=== PATIENT | male | born 1935 | race Caucasian/White ===

== ENCOUNTER 2016-06-22 16:05 | Outpatient (CLI) | payer MEDICARE ==
[2016-06-22 16:56] LABS: %FREE PSA 11.3 % (0-10); FREE PSA 0.65 ng/mL (0.00-45)
== END 2016-06-22 23:59 | disposition home or self-care (01) ==
LOC: LAB 16:05
DX: N40.0 Benign prostatic hyperplasia without lower urinary tract symptoms (principal)
CPT/HCPCS: 36415; 84153-TC; 84154-TC

== ENCOUNTER 2016-08-07 12:21 | Outpatient (CLI) | payer MEDICARE ==
[2016-08-07 13:35] LABS: ALBUMIN 3.3 g/dL (3.4-5.0); BILIRUBIN,TOTAL 0.3 mg/dL (0.2-1.0); CALCIUM, SERUM 8.8 mg/dL (8.5-10.1); CREATININE 1.1 mg/dL (0.6-1.3); POTASSIUM 4.4 mmol/L (3.5-5.1)
[2016-08-07 13:48] LABS: %FREE PSA 13.7 % (0-10); FREE PSA 1.01 ng/mL (0.00-45)
== END 2016-08-07 23:59 | disposition home or self-care (01) ==
LOC: LAB 12:21
DX: E29.1 Testicular hypofunction (principal); N40.0 Benign prostatic hyperplasia without lower urinary tract symptoms
CPT/HCPCS: 36415; 80053-TC; 84153-TC; 84154-TC

== ENCOUNTER → 2016-08-28 | Outpatient (CLI) | payer MEDICARE ==
[2016-08-28 12:41] LABS: FREE PSA 0.6 ng/mL (0.00-45); PROSTATE SPECIFIC ANTIGEN SCR 4.23 ng/mL (0.00-4.00)
== END ==
LOC: LAB 11:45
DX: R97.20 Elevated prostate specific antigen [PSA] (principal)
CPT/HCPCS: 36415; 84153-TC; 84154-TC

== ENCOUNTER 2016-12-02 12:20 | Outpatient (CLI) | payer MEDICARE ==
[2016-12-02 13:11] LABS: BASOPHILS % (AUTO) 0.3 % (0.0-2.0); EOSINOPHILS # (AUTO) 0.1 /CMM (0.0-0.7); EOSINOPHILS % (AUTO) 1.8 % (0.0-6.0); HEMATOCRIT 46 % (39-51); HEMOGLOBIN 15.6 g/dL (13.5-17.5); LYMPHOCYTES # (AUTO) 2.2 /CMM (0.8-4.8); LYMPHOCYTES % (AUTO) 28.8 % (20.0-44.0); MEAN CORPUSCULAR HEMOGLOBIN 31 PG (26.0-33.0); MEAN CORPUSCULAR HGB CONC 34 g/dl (31.0-36.0); MEAN CORPUSCULAR VOLUME 91 fL (80-96); MONOCYTES # (AUTO) 0.7 /CMM (0.1-1.30); MONOCYTES % (AUTO) 9.1 % (2.0-12.0); NEUTROPHILS # (AUTO) 4.5 /CMM (1.8-8.9); PLATELET COUNT (AUTO) 209 /CMM (150-450); RED BLOOD CELL COUNT(AUTO) 5.06 MIL/uL (4.5-6.0); WHITE BLOOD COUNT (AUTO) 7.5 K/uL (4.3-11.0)
[2016-12-02 13:27] LABS: ALANINE AMINOTRANSFERASE 29 U/L (12-78); ALBUMIN 3.7 g/dL (3.4-5.0); ALKALINE PHOSPHATASE 75 U/L (46-116); ASPARTATE AMINOTRANSFERASE 20 U/L (15-37); CARBON DIOXIDE 27 mmol/L (21-32); CHLORIDE 108 mmol/L (98-107); GLUCOSE 98 mg/dL (74-106); POTASSIUM 4.2 mmol/L (3.5-5.1); SODIUM SERUM 143 mmol/L (136-145); TOTAL PROTEIN, SERUM 7.5 g/dL (6.4-8.2); UREA NITROGEN, BLOOD 21 mg/dL (7-18)
[2016-12-02 13:44] LABS: CHOLESTEROL 214 mg/dL (<200); FREE PSA 0.76 ng/mL (0.00-45); FREE T4 (FREE THYROXINE) 1.01 ng/dL (0.76-1.46); HDL CHOLESTEROL 43 mg/dL (40-60); LDL 140 mg/dL (0-99); PROSTATE SPECIFIC ANTIGEN SCR 4.53 ng/mL (0.00-4.00); THYROID STIMULATING HORMONE 1.016 uIU/mL (0.358-3.74); TRIGLYCERIDES 87 mg/dL (30-150)
== END 2016-12-02 23:59 | disposition home or self-care (01) ==
LOC: LAB 12:20
DX: H10.023 Other mucopurulent conjunctivitis, bilateral (principal); R97.20 Elevated prostate specific antigen [PSA]
CPT/HCPCS: 36415; 80053-TC; 80061-TC; 84153-TC; 84154-TC; 84439-TC; 84443-TC; 84550-TC; 85025-TC

== ENCOUNTER 2017-03-03 12:05 | Outpatient (CLI) | payer MEDICARE ==
[2017-03-03 13:17] LABS: CHOLESTEROL 206 mg/dL (<200); HDL CHOLESTEROL 48 mg/dL (40-60); LDL 139 mg/dL (0-99); TRIGLYCERIDES 118 mg/dL (30-150)
[2017-03-04 11:14] LABS: *TESTOSTERONE, SERUM 277 ng/dL (264-916)
== END 2017-03-03 23:59 | disposition home or self-care (01) ==
LOC: LAB 12:05
DX: E78.2 Mixed hyperlipidemia (principal); E78.00 Pure hypercholesterolemia, unspecified; R97.21 Rising PSA following treatment for malignant neoplasm of prostate
CPT/HCPCS: 36415; 80061-TC; 84402; 84403

== ENCOUNTER 2017-04-22 13:43 | Outpatient (CLI) | payer MEDICARE ==
[2017-04-22 14:46] LABS: BASOPHILS % (AUTO) 0.5 % (0.0-2.0); EOSINOPHILS # (AUTO) 0.2 /CMM (0.0-0.7); EOSINOPHILS % (AUTO) 1.8 % (0.0-6.0); HEMATOCRIT 47 % (39-51); HEMOGLOBIN 15.7 g/dL (13.5-17.5); LYMPHOCYTES % (AUTO) 23.5 % (20.0-44.0); MEAN CORPUSCULAR HEMOGLOBIN 31 PG (26.0-33.0); MEAN CORPUSCULAR HGB CONC 34 g/dl (31.0-36.0); MEAN CORPUSCULAR VOLUME 93 fL (80-96); MONOCYTES # (AUTO) 0.7 /CMM (0.1-1.30); MONOCYTES % (AUTO) 7.9 % (2.0-12.0); NEUTROPHILS # (AUTO) 5.6 /CMM (1.8-8.9); NEUTROPHILS % (AUTO) 66.3 % (43.0-81.0); PLATELET COUNT (AUTO) 257 /CMM (150-450); RDW COEFFICIENT OF VARIATION 12.9 (11.5-15.0); RED BLOOD CELL COUNT(AUTO) 5.03 MIL/uL (4.5-6.0); WHITE BLOOD COUNT (AUTO) 8.5 K/uL (4.3-11.0)
[2017-04-22 15:13] LABS: ALANINE AMINOTRANSFERASE 31 U/L (12-78); ALBUMIN 3.7 g/dL (3.4-5.0); ALKALINE PHOSPHATASE 81 U/L (46-116); ASPARTATE AMINOTRANSFERASE 20 U/L (15-37); BILIRUBIN,TOTAL 0.8 mg/dL (0.2-1.0); CALCIUM, SERUM 9.3 mg/dL (8.5-10.1); CARBON DIOXIDE 29 mmol/L (21-32); CHLORIDE 103 mmol/L (98-107); CREATININE 1.1 mg/dL (0.6-1.3); GLUCOSE 87 mg/dL (74-106); POTASSIUM 4.1 mmol/L (3.5-5.1); SODIUM SERUM 140 mmol/L (136-145); TOTAL PROTEIN, SERUM 7.6 g/dL (6.4-8.2); UREA NITROGEN, BLOOD 16 mg/dL (7-18)
[2017-04-22 15:27] LABS: CHOLESTEROL 186 mg/dL (<200); FREE PSA 1.41 ng/mL (0.00-45); HDL CHOLESTEROL 39 mg/dL (40-60); LDL 128 mg/dL (0-99); PROSTATE SPECIFIC ANTIGEN SCR 8.56 ng/mL (0.00-4.00); THYROID STIMULATING HORMONE 1.115 uIU/mL (0.358-3.74); TRIGLYCERIDES 83 mg/dL (30-150); URIC ACID 5.2 mg/dL (2.6-7.2)
[2017-04-22 18:34] LABS: T4 (THYROXINE) 8.8 ug/dL (4.7-13.3)
[2017-04-23 08:10] LABS: *TESTOSTERONE, SERUM 256 ng/dL (264-916); T3 TOTAL 118 ng/dL (71-180)
[2017-04-26 15:14] LABS: *TESTOSTERONE, FREE (DIRECT) 11.5 pg/mL (6.6-18.1)
== END 2017-04-22 23:59 | disposition home or self-care (01) ==
LOC: LAB 13:43
DX: E78.2 Mixed hyperlipidemia (principal); E78.00 Pure hypercholesterolemia, unspecified; R97.20 Elevated prostate specific antigen [PSA]
CPT/HCPCS: 36415; 80053-TC; 80061-TC; 80074; 84153-TC; 84154-TC; 84402; 84403; 84436-TC; 84439-TC; 84443-TC; 84480; 84481; 84550-TC; 85025-TC; 86592

== ENCOUNTER 2017-05-19 13:26 | Outpatient (CLI) | payer MEDICARE ==
[2017-05-19 14:51] LABS: FREE PSA 0.68 ng/mL (0.00-45); PROSTATE SPECIFIC ANTIGEN SCR 5.48 ng/mL (0.00-4.00)
== END 2017-05-19 23:59 | disposition home or self-care (01) ==
LOC: LAB 13:26
DX: E29.1 Testicular hypofunction (principal)
CPT/HCPCS: 36415; 84153-TC; 84154-TC

== ENCOUNTER 2017-07-01 13:52 | Outpatient (CLI) | payer MEDICARE ==
[2017-07-01 17:40] LABS: ALANINE AMINOTRANSFERASE 23 U/L (12-78); ALBUMIN 3.7 g/dL (3.4-5.0); ALKALINE PHOSPHATASE 73 U/L (46-116); ASPARTATE AMINOTRANSFERASE 21 U/L (15-37); BILIRUBIN,TOTAL 0.8 mg/dL (0.2-1.0); CALCIUM, SERUM 8.9 mg/dL (8.5-10.1); CARBON DIOXIDE 28 mmol/L (21-32); CHLORIDE 104 mmol/L (98-107); CREATININE 0.9 mg/dL (0.6-1.3); GLUCOSE 82 mg/dL (74-106); POTASSIUM 4.3 mmol/L (3.5-5.1); SODIUM SERUM 140 mmol/L (136-145); TOTAL PROTEIN, SERUM 7.3 g/dL (6.4-8.2); UREA NITROGEN, BLOOD 15 mg/dL (7-18)
[2017-07-01 17:52] LABS: CHOLESTEROL 203 mg/dL (<200); FREE PSA 0.62 ng/mL (0.00-45); HDL CHOLESTEROL 45 mg/dL (40-60); LDL 150 mg/dL (0-99); PROSTATE SPECIFIC ANTIGEN SCR 4.59 ng/mL (0.00-4.00); TRIGLYCERIDES 85 mg/dL (30-150)
[2017-07-02 08:08] LABS: *TESTOSTERONE, SERUM 218 ng/dL (264-916)
[2017-07-05 12:09] LABS: *TESTOSTERONE, FREE (DIRECT) 10.6 pg/mL (6.6-18.1)
== END 2017-07-01 23:59 | disposition home or self-care (01) ==
LOC: LAB 13:52
DX: E29.1 Testicular hypofunction (principal); R97.20 Elevated prostate specific antigen [PSA]; R79.89 Other specified abnormal findings of blood chemistry
CPT/HCPCS: 36415; 80053-TC; 80061-TC; 84153-TC; 84154-TC; 84402; 84403

== ENCOUNTER 2017-09-30 13:06 | Outpatient (CLI) | payer MEDICARE ==
[2017-09-30 13:43] LABS: BASOPHILS # (AUTO) 0.1 /CMM (0.0-0.2); BASOPHILS % (AUTO) 0.9 % (0.0-2.0); EOSINOPHILS % (AUTO) 2.5 % (0.0-6.0); HEMATOCRIT 46 % (39-51); HEMOGLOBIN 15.7 g/dL (13.5-17.5); LYMPHOCYTES # (AUTO) 1.9 /CMM (0.8-4.8); LYMPHOCYTES % (AUTO) 24.2 % (20.0-44.0); MEAN CORPUSCULAR HGB CONC 34 g/dl (31.0-36.0); MEAN CORPUSCULAR VOLUME 91 fL (80-96); MONOCYTES # (AUTO) 0.7 /CMM (0.1-1.30); MONOCYTES % (AUTO) 8.7 % (2.0-12.0); NEUTROPHILS % (AUTO) 63.7 % (43.0-81.0); PLATELET COUNT (AUTO) 254 /CMM (150-450); RDW COEFFICIENT OF VARIATION 13.7 (11.5-15.0); RED BLOOD CELL COUNT(AUTO) 5.11 MIL/uL (4.5-6.0); WHITE BLOOD COUNT (AUTO) 7.9 K/uL (4.3-11.0)
[2017-09-30 15:57] LABS: ALANINE AMINOTRANSFERASE 41 U/L (12-78); ALBUMIN 3.7 g/dL (3.4-5.0); ALKALINE PHOSPHATASE 71 U/L (46-116); ASPARTATE AMINOTRANSFERASE 29 U/L (15-37); CALCIUM, SERUM 8.7 mg/dL (8.5-10.1); CARBON DIOXIDE 28 mmol/L (21-32); CHLORIDE 106 mmol/L (98-107); GLUCOSE 90 mg/dL (74-106); SODIUM SERUM 140 mmol/L (136-145); TOTAL PROTEIN, SERUM 7.4 g/dL (6.4-8.2); UREA NITROGEN, BLOOD 18 mg/dL (7-18)
[2017-09-30 16:09] LABS: CHOLESTEROL 215 mg/dL (<200); FREE PSA 0.73 ng/mL (0.00-45); HDL CHOLESTEROL 40 mg/dL (40-60); LDL 158 mg/dL (0-99); PROSTATE SPECIFIC ANTIGEN SCR 5.53 ng/mL (0.00-4.00); THYROID STIMULATING HORMONE 1.111 uIU/mL (0.358-3.74); TRIGLYCERIDES 107 mg/dL (30-150); URIC ACID 5.4 mg/dL (2.6-7.2)
== END 2017-09-30 23:59 | disposition home or self-care (01) ==
LOC: LAB 13:06
DX: E29.1 Testicular hypofunction (principal); G47.33 Obstructive sleep apnea (adult) (pediatric); R79.89 Other specified abnormal findings of blood chemistry
CPT/HCPCS: 36415; 80053-TC; 80061-TC; 84153-TC; 84154-TC; 84402; 84403; 84436-TC; 84439-TC; 84443-TC; 84550-TC; 85025-TC

== ENCOUNTER 2017-12-03 13:44 | Outpatient (CLI) | payer MEDICARE ==
[2017-12-03 16:26] LABS: FREE PSA 0.69 ng/mL (0.00-45); PROSTATE SPECIFIC ANTIGEN SCR 5.84 ng/mL (0.00-4.00)
== END 2017-12-03 23:59 | disposition home or self-care (01) ==
LOC: LAB 13:44
DX: E78.2 Mixed hyperlipidemia (principal); R97.20 Elevated prostate specific antigen [PSA]; E78.00 Pure hypercholesterolemia, unspecified
CPT/HCPCS: 36415; 80061-TC; 84153-TC; 84154-TC; 84402; 84403

== ENCOUNTER 2018-07-08 13:25 | Outpatient (CLI) | payer MEDICARE ==
[2018-07-08 14:46] LABS: BASOPHILS # (AUTO) 0.1 /CMM (0.0-0.2); BASOPHILS % (AUTO) 0.9 % (0.0-2.0); EOSINOPHILS % (AUTO) 4.2 % (0.0-6.0); HEMATOCRIT 44 % (39-51); HEMOGLOBIN 14.8 g/dL (13.5-17.5); LYMPHOCYTES # (AUTO) 2.1 /CMM (0.8-4.8); MEAN CORPUSCULAR HGB CONC 34 g/dl (31.0-36.0); MEAN CORPUSCULAR VOLUME 93 fL (80-96); MONOCYTES # (AUTO) 0.6 /CMM (0.1-1.30); MONOCYTES % (AUTO) 8.5 % (2.0-12.0); NEUTROPHILS # (AUTO) 4.1 /CMM (1.8-8.9); NEUTROPHILS % (AUTO) 57.4 % (43.0-81.0); PLATELET COUNT (AUTO) 217 /CMM (150-450); RED BLOOD CELL COUNT(AUTO) 4.73 MIL/uL (4.5-6.0); WHITE BLOOD COUNT (AUTO) 7.2 K/uL (4.3-11.0)
[2018-07-08 15:03] LABS: ALANINE AMINOTRANSFERASE 64 U/L (12-78); ALBUMIN 3.3 g/dL (3.4-5.0); ALKALINE PHOSPHATASE 69 U/L (46-116); ASPARTATE AMINOTRANSFERASE 41 U/L (15-37); BILIRUBIN,TOTAL 0.6 mg/dL (0.2-1.0); CALCIUM, SERUM 8.5 mg/dL (8.5-10.1); CARBON DIOXIDE 29 mmol/L (21-32); CHLORIDE 106 mmol/L (98-107); CREATININE 0.8 mg/dL (0.6-1.3); GLUCOSE 89 mg/dL (74-106); POTASSIUM 4.2 mmol/L (3.5-5.1); SODIUM SERUM 143 mmol/L (136-145); TOTAL PROTEIN, SERUM 6.5 g/dL (6.4-8.2); UREA NITROGEN, BLOOD 17 mg/dL (7-18)
[2018-07-08 15:56] LABS: CHOLESTEROL 200 mg/dL (<200); FREE PSA 0.69 ng/mL (0.00-45); HDL CHOLESTEROL 40 mg/dL (40-60); LDL 139 mg/dL (0-99); PROSTATE SPECIFIC ANTIGEN SCR 5.38 ng/mL (0.00-4.00); TRIGLYCERIDES 143 mg/dL (30-150)
== END 2018-07-08 23:59 | disposition home or self-care (01) ==
LOC: LAB 13:25
DX: E29.1 Testicular hypofunction (principal); R97.20 Elevated prostate specific antigen [PSA]
CPT/HCPCS: 36415; 80053-TC; 80061-TC; 84153-TC; 84154-TC; 85025-TC

== ENCOUNTER 2018-08-18 11:46 | Outpatient (CLI) | payer MEDICARE ==
[2018-08-18 12:44] LABS: ALBUMIN 3.7 g/dL (3.4-5.0); BILIRUBIN,DIRECT 0.1 mg/dL (0.0-0.2); BILIRUBIN,TOTAL 0.7 mg/dL (0.2-1.0); TOTAL PROTEIN, SERUM 7.4 g/dL (6.4-8.2)
== END 2018-08-18 23:59 | disposition home or self-care (01) ==
LOC: LAB 11:46
DX: E29.1 Testicular hypofunction (principal); R94.5 Abnormal results of liver function studies
CPT/HCPCS: 36415; 80074; 80076-TC; 84402; 84403

== ENCOUNTER 2018-08-24 13:54 | Outpatient (CLI) | payer MEDICARE | END 2018-08-24 23:59 | disposition home or self-care (01) | LOC: RAD 13:54 | DX: J18.9 Pneumonia, unspecified organism (principal) | CPT/HCPCS: 71046 ==

== ENCOUNTER 2019-01-25 15:14 | Emergency (ER) | payer MEDICARE ==
[~2019-01-25] VITALS: Ht 182.9 cm; Wt 85.7 kg
--- NOTE | 2019-01-25 16:00 | NUR ---
patient came in to the ER c/o dizziness, on room air, breathing evenly and unlabored. Connected to the monitor and pulse ox. Kept comfortable, will continue to monitor accordingly.
[2019-01-25 17:27] VITALS: BP 128/71
--- NOTE | 2019-01-25 17:29 | NUR ---
Patient discharged to home in stable condition. Written and verbal after care instructions given. Patient verbalizes understanding of instruction.IV removed. Catheter intact and site benign. Pressure and 4x4 applied to site. No bleeding noted.
== END 2019-01-25 17:28 | disposition home or self-care (01) ==
LOC: ER 15:17
DX: S06.0X0A Concussion without loss of consciousness, initial encounter (principal); Z85.828 Personal history of other malignant neoplasm of skin; V49.49XA Driver injured in collision with other motor vehicles in traffic accident, initial encounter; Y93.89 Activity, other specified; Y92.413 State road as the place of occurrence of the external cause; Y99.8 Other external cause status
CPT/HCPCS: 70450-TC

== ENCOUNTER 2019-03-09 13:23 | Outpatient (CLI) | payer MEDICARE ==
[2019-03-09 14:11] LABS: BASOPHILS # (AUTO) 0.1 /CMM (0.0-0.2); BASOPHILS % (AUTO) 0.8 % (0.0-2.0); EOSINOPHILS % (AUTO) 1.7 % (0.0-6.0); HEMATOCRIT 46 % (39-51); HEMOGLOBIN 15.4 g/dL (13.5-17.5); LYMPHOCYTES # (AUTO) 1.9 /CMM (0.8-4.8); LYMPHOCYTES % (AUTO) 25.7 % (20.0-44.0); MEAN CORPUSCULAR HGB CONC 34 g/dl (31.0-36.0); MEAN CORPUSCULAR VOLUME 93 fL (80-96); MONOCYTES # (AUTO) 0.6 /CMM (0.1-1.30); MONOCYTES % (AUTO) 8.5 % (2.0-12.0); NEUTROPHILS # (AUTO) 4.7 /CMM (1.8-8.9); NEUTROPHILS % (AUTO) 63.3 % (43.0-81.0); PLATELET COUNT (AUTO) 222 /CMM (150-450); RED BLOOD CELL COUNT(AUTO) 4.93 MIL/uL (4.5-6.0); WHITE BLOOD COUNT (AUTO) 7.4 K/uL (4.3-11.0)
[2019-03-09 14:26] LABS: ALBUMIN 3.6 g/dL (3.4-5.0); BILIRUBIN,TOTAL 0.8 mg/dL (0.2-1.0); CALCIUM, SERUM 8.6 mg/dL (8.5-10.1); CREATININE 0.9 mg/dL (0.6-1.3); POTASSIUM 4.1 mmol/L (3.5-5.1); TOTAL PROTEIN, SERUM 7.1 g/dL (6.4-8.2)
[2019-03-09 14:38] LABS: FREE PSA 1.02 ng/mL (0.00-45); PROSTATE SPECIFIC ANTIGEN SCR 6.57 ng/mL (0.00-4.00); THYROID STIMULATING HORMONE 1.106 uIU/mL (0.358-3.74)
[2019-03-09 16:07] LABS: APPEARANCE,URINE Clear (CLEAR); BILIRUBIN,URINE Negative (NEGATIVE); BLOOD, URINE Negative Ery/uL (NEGATIVE); COLOR,URINE Yellow (YELLOW); KETONES,URINE Negative (NEGATIVE); LEUKOCYTE ESTERASE ,URINE Negative (NEGATIVE); NITRITE, URINE Negative (NEGATIVE); PH,URINE 6.5 (5.0-8.0); PROTEIN,URINE Negative (NEGATIVE); UGLUCOSE Negative (NEGATIVE); UROBILINOGEN,URINE 0.2 EU/dL (0.2)
== END 2019-03-09 23:59 | disposition home or self-care (01) ==
LOC: LAB 13:23
DX: E29.1 Testicular hypofunction (principal); R97.20 Elevated prostate specific antigen [PSA]
CPT/HCPCS: 36415; 80053-TC; 80061-TC; 81000-TC; 84153-TC; 84154-TC; 84402; 84403; 84443-TC; 84550-TC; 85025-TC

== ENCOUNTER 2019-03-28 13:31 | Outpatient (CLI) | payer MEDICARE | END 2019-03-28 23:59 | disposition home or self-care (01) | LOC: LAB 13:31 | DX: N48.82 Acquired torsion of penis (principal); R97.20 Elevated prostate specific antigen [PSA] | CPT/HCPCS: 36415 ==

== ENCOUNTER 2019-06-15 13:10 | Outpatient (CLI) | payer MEDICARE ==
[2019-06-15 13:52] LABS: BASOPHILS # (AUTO) 0.1 /CMM (0.0-0.2); BASOPHILS % (AUTO) 1.2 % (0.0-2.0); EOSINOPHILS % (AUTO) 2.6 % (0.0-6.0); HEMATOCRIT 44 % (39-51); HEMOGLOBIN 14.7 g/dL (13.5-17.5); LYMPHOCYTES # (AUTO) 1.8 /CMM (0.8-4.8); LYMPHOCYTES % (AUTO) 25.6 % (20.0-44.0); MEAN CORPUSCULAR HGB CONC 33 g/dl (31.0-36.0); MEAN CORPUSCULAR VOLUME 93 fL (80-96); MONOCYTES # (AUTO) 0.8 /CMM (0.1-1.30); MONOCYTES % (AUTO) 10.7 % (2.0-12.0); NEUTROPHILS # (AUTO) 4.3 /CMM (1.8-8.9); NEUTROPHILS % (AUTO) 59.9 % (43.0-81.0); PLATELET COUNT (AUTO) 239 /CMM (150-450); RED BLOOD CELL COUNT(AUTO) 4.76 MIL/uL (4.5-6.0); WHITE BLOOD COUNT (AUTO) 7.2 K/uL (4.3-11.0)
[2019-06-15 14:14] LABS: ALBUMIN 3.4 g/dL (3.4-5.0); BILIRUBIN,TOTAL 0.7 mg/dL (0.2-1.0); CALCIUM, SERUM 8.7 mg/dL (8.5-10.1); CREATININE 0.9 mg/dL (0.6-1.3); POTASSIUM 4.2 mmol/L (3.5-5.1); TOTAL PROTEIN, SERUM 7.1 g/dL (6.4-8.2)
== END 2019-06-15 23:59 | disposition home or self-care (01) ==
LOC: LAB 13:10
DX: C44.519 Basal cell carcinoma of skin of other part of trunk (principal); E78.00 Pure hypercholesterolemia, unspecified; E78.2 Mixed hyperlipidemia; J02.9 Acute pharyngitis, unspecified; I12.9 Hypertensive chronic kidney disease with stage 1 through stage 4 chronic kidney disease, or unspecified chronic kidney disease; N18.3 Chronic kidney disease, stage 3 (moderate)
CPT/HCPCS: 36415; 80053-TC; 80061-TC; 85025-TC

== ENCOUNTER 2019-07-27 12:19 | Outpatient (CLI) | payer MEDICARE ==
[2019-07-27 13:37] LABS: BASOPHILS # (AUTO) 0.1 /CMM (0.0-0.2); BASOPHILS % (AUTO) 1.1 % (0.0-2.0); EOSINOPHILS % (AUTO) 2.3 % (0.0-6.0); HEMATOCRIT 48 % (39-51); HEMOGLOBIN 15.8 g/dL (13.5-17.5); LYMPHOCYTES # (AUTO) 1.9 /CMM (0.8-4.8); LYMPHOCYTES % (AUTO) 24.9 % (20.0-44.0); MEAN CORPUSCULAR HGB CONC 33 g/dl (31.0-36.0); MEAN CORPUSCULAR VOLUME 92 fL (80-96); MONOCYTES # (AUTO) 0.6 /CMM (0.1-1.30); MONOCYTES % (AUTO) 7.6 % (2.0-12.0); NEUTROPHILS # (AUTO) 4.9 /CMM (1.8-8.9); NEUTROPHILS % (AUTO) 64.1 % (43.0-81.0); PLATELET COUNT (AUTO) 240 /CMM (150-450); RED BLOOD CELL COUNT(AUTO) 5.18 MIL/uL (4.5-6.0); WHITE BLOOD COUNT (AUTO) 7.7 K/uL (4.3-11.0)
[2019-07-27 13:38] LABS: APPEARANCE,URINE CLEAR (CLEAR); BILIRUBIN,URINE NEGATIVE (NEGATIVE); BLOOD, URINE NEGATIVE Ery/uL (NEGATIVE); COLOR,URINE YELLOW (YELLOW); KETONES,URINE NEGATIVE (NEGATIVE); LEUKOCYTE ESTERASE ,URINE NEGATIVE (NEGATIVE); NITRITE, URINE NEGATIVE (NEGATIVE); PH,URINE 6.5 (5.0-8.0); PROTEIN,URINE NEGATIVE (NEGATIVE); UGLUCOSE NEGATIVE (NEGATIVE); UROBILINOGEN,URINE 0.2 EU/dL (0.2)
[2019-07-27 14:24] LABS: ALBUMIN 3.8 g/dL (3.4-5.0); BILIRUBIN,TOTAL 0.6 mg/dL (0.2-1.0); CALCIUM, SERUM 9.2 mg/dL (8.5-10.1); POTASSIUM 4.2 mmol/L (3.5-5.1); TOTAL PROTEIN, SERUM 7.8 g/dL (6.4-8.2)
[2019-07-27 14:37] LABS: FREE PSA 1.31 ng/mL (0.00-45); PROSTATE SPECIFIC ANTIGEN SCR 10.01 ng/mL (0.00-4.00); THYROID STIMULATING HORMONE 1.179 uIU/mL (0.358-3.74)
== END 2019-07-27 23:59 | disposition home or self-care (01) ==
LOC: LAB 12:19
DX: C44.81 Basal cell carcinoma of overlapping sites of skin (principal); C44.519 Basal cell carcinoma of skin of other part of trunk; N40.0 Benign prostatic hyperplasia without lower urinary tract symptoms; R97.20 Elevated prostate specific antigen [PSA]; E78.00 Pure hypercholesterolemia, unspecified; I12.9 Hypertensive chronic kidney disease with stage 1 through stage 4 chronic kidney disease, or unspecified chronic kidney disease; E11.22 Type 2 diabetes mellitus with diabetic chronic kidney disease; N18.3 Chronic kidney disease, stage 3 (moderate)
CPT/HCPCS: 36415; 80053-TC; 80061-TC; 81000-TC; 84153-TC; 84154-TC; 84402; 84403; 84443-TC; 85025-TC

== ENCOUNTER 2019-08-31 13:21 | Outpatient (CLI) | payer MEDICARE | END 2019-08-31 23:59 | disposition home or self-care (01) | LOC: LAB 13:21 | DX: R97.20 Elevated prostate specific antigen [PSA] (principal); E29.1 Testicular hypofunction | CPT/HCPCS: 36415; 84153-TC; 84402; 84403 ==

== ENCOUNTER 2020-01-04 13:09 | Outpatient (CLI) | payer MEDICARE ==
[2020-01-05 00:43] LABS: FREE PSA 1.17 ng/mL (0.00-45); PROSTATE SPECIFIC ANTIGEN SCR 8.71 ng/mL (0.00-4.00)
== END 2020-01-04 23:59 | disposition home or self-care (01) ==
LOC: LAB 13:09
DX: N40.0 Benign prostatic hyperplasia without lower urinary tract symptoms (principal); E29.1 Testicular hypofunction; Z79.899 Other long term (current) drug therapy
CPT/HCPCS: 36415; 84153-TC; 84154-TC; 84402; 84403

== ENCOUNTER 2020-03-01 13:09 | Outpatient (CLI) | payer MEDICARE ==
[2020-03-01 14:03] LABS: APPEARANCE,URINE CLEAR (CLEAR); BILIRUBIN,URINE NEGATIVE (NEGATIVE); BLOOD, URINE TRACE-INTA Ery/uL (NEGATIVE); COLOR,URINE YELLOW (YELLOW); KETONES,URINE NEGATIVE (NEGATIVE); LEUKOCYTE ESTERASE ,URINE NEGATIVE (NEGATIVE); NITRITE, URINE NEGATIVE (NEGATIVE); PROTEIN,URINE NEGATIVE (NEGATIVE); UGLUCOSE NEGATIVE (NEGATIVE); UROBILINOGEN,URINE 0.2 EU/dL (0.2)
[2020-03-01 14:37] LABS: ALBUMIN 3.4 g/dL (3.4-5.0); BACTERIA,URINE None seen /HPF (None Seen); BILIRUBIN,TOTAL 0.7 mg/dL (0.2-1.0); CALCIUM, SERUM 8.6 mg/dL (8.5-10.1); CREATININE 0.9 mg/dL (0.6-1.3); MUCUS,URINE Few /LPF (None Seen); POTASSIUM 3.9 mmol/L (3.5-5.1); SQUAMOUS EPITHELIAL CELL,UR 0-2 /HPF (None Seen); TOTAL PROTEIN, SERUM 6.9 g/dL (6.4-8.2); WBC,URINE 0-2 /HPF (0-3)
[2020-03-01 14:52] LABS: FREE PSA 1.25 ng/mL (0.00-45); PROSTATE SPECIFIC ANTIGEN SCR 9.95 ng/mL (0.00-4.00)
== END 2020-03-01 23:59 | disposition home or self-care (01) ==
LOC: LAB 13:09
DX: E78.00 Pure hypercholesterolemia, unspecified (principal); R97.20 Elevated prostate specific antigen [PSA]
CPT/HCPCS: 36415; 80053-TC; 80061-TC; 81000-TC; 84153-TC; 84154-TC; 84402; 84403; 87086-TC

== ENCOUNTER 2020-03-22 14:40 | Outpatient (CLI) | payer MEDICARE ==
[2020-03-22 16:40] LABS: FREE PSA 1.29 ng/mL (0.00-45); PROSTATE SPECIFIC ANTIGEN SCR 10.11 ng/mL (0.00-4.00)
== END 2020-03-22 23:59 | disposition home or self-care (01) ==
LOC: LAB 14:40
DX: N40.0 Benign prostatic hyperplasia without lower urinary tract symptoms (principal); R97.20 Elevated prostate specific antigen [PSA]
CPT/HCPCS: 36415; 84153-TC; 84154-TC

== ENCOUNTER 2020-07-24 13:00 | Outpatient (CLI) | payer MEDICARE ==
[2020-07-24 13:50] LABS: ALBUMIN 3.4 g/dL (3.4-5.0); BILIRUBIN,TOTAL 0.7 mg/dL (0.2-1.0); CALCIUM, SERUM 8.7 mg/dL (8.5-10.1); CREATININE 0.9 mg/dL (0.6-1.3); POTASSIUM 4.3 mmol/L (3.5-5.1)
[2020-07-24 14:01] LABS: PROSTATE SPECIFIC ANTIGEN SCR 9.48 ng/mL (0.00-4.00)
== END 2020-07-24 23:59 | disposition home or self-care (01) ==
LOC: LAB 13:00
DX: E78.2 Mixed hyperlipidemia (principal); R97.20 Elevated prostate specific antigen [PSA]; Z00.00 Encounter for general adult medical examination without abnormal findings
CPT/HCPCS: 36415; 80053-TC; 80061-TC; 84153-TC; 84154-TC

== ENCOUNTER 2020-09-19 13:09 | Outpatient (CLI) | payer MEDICARE ==
[2020-09-19 14:20] LABS: PROSTATE SPECIFIC ANTIGEN SCR 8.81 ng/mL (0.00-4.00)
== END 2020-09-19 23:59 | disposition home or self-care (01) ==
LOC: LAB 13:09
DX: E78.00 Pure hypercholesterolemia, unspecified (principal); N40.0 Benign prostatic hyperplasia without lower urinary tract symptoms; M25.552 Pain in left hip; Z00.00 Encounter for general adult medical examination without abnormal findings
CPT/HCPCS: 36415; 80061-TC; 84153-TC; 84154-TC; 84402; 84403

== ENCOUNTER 2021-02-18 14:17 | Outpatient (CLI) | payer MEDICARE ==
[2021-02-18 15:22] LABS: PROSTATE SPECIFIC ANTIGEN SCR 9.04 ng/mL (0.00-4.00)
== END 2021-02-18 23:59 | disposition home or self-care (01) ==
LOC: LAB 14:17
DX: C44.81 Basal cell carcinoma of overlapping sites of skin (principal); E78.2 Mixed hyperlipidemia; L82.1 Other seborrheic keratosis
CPT/HCPCS: 36415; 80061-TC; 84153-TC; 84154-TC

== ENCOUNTER 2021-11-03 12:12 | Outpatient (CLI) | payer MEDICARE, OTHER ==
[2021-11-03 13:10] LABS: BASOPHILS # (AUTO) 0.1 K/uL (0.0-0.2); BASOPHILS % (AUTO) 0.7 % (0.0-2.0); EOSINOPHILS % (AUTO) 1.8 % (0.0-6.0); HEMATOCRIT 45 % (39-51); HEMOGLOBIN 15.2 g/dL (13.5-17.5); LYMPHOCYTES # (AUTO) 1.8 K/uL (0.8-4.8); LYMPHOCYTES % (AUTO) 22.6 % (20.0-44.0); MEAN CORPUSCULAR HGB CONC 34 g/dl (31.0-36.0); MEAN CORPUSCULAR VOLUME 92 fL (80-96); MONOCYTES # (AUTO) 0.6 K/uL (0.1-1.30); MONOCYTES % (AUTO) 7.5 % (2.0-12.0); NEUTROPHILS # (AUTO) 5.4 K/uL (1.8-8.9); NEUTROPHILS % (AUTO) 67.4 % (43.0-81.0); PLATELET COUNT (AUTO) 226 K/uL (150-450)
[2021-11-03 13:54] LABS: BILIRUBIN,URINE NEGATIVE (NEGATIVE); COLOR,URINE YELLOW (YELLOW); LEUKOCYTE ESTERASE ,URINE NEGATIVE (NEGATIVE); NITRITE, URINE NEGATIVE (NEGATIVE); PH,URINE 6.5 (5.0-8.0); PROTEIN,URINE NEGATIVE (NEGATIVE); UGLUCOSE NEGATIVE (NEGATIVE); UROBILINOGEN,URINE 0.2 EU/dL (0.2)
[2021-11-03 13:57] LABS: ALANINE AMINOTRANSFERASE 31 U/L (12-78); ALBUMIN 3.7 g/dL (3.4-5.0); ALKALINE PHOSPHATASE 90 U/L (46-116); ASPARTATE AMINOTRANSFERASE 23 U/L (15-37); BILIRUBIN,TOTAL 0.7 mg/dL (0.2-1.0); CALCIUM, SERUM 8.9 mg/dL (8.5-10.1); CARBON DIOXIDE 29 mmol/L (21-32); CHLORIDE 106 mmol/L (98-107); CREATININE 0.9 mg/dL (0.6-1.3); GLUCOSE 98 mg/dL (74-106); SODIUM SERUM 141 mmol/L (136-145); TOTAL PROTEIN, SERUM 7.6 g/dL (6.4-8.2); UREA NITROGEN, BLOOD 15 mg/dL (7-18)
[2021-11-03 14:04] LABS: CHOLESTEROL 205 mg/dL (<200); HDL CHOLESTEROL 45 mg/dL (40-60); LDL 134 mg/dL (0-99); THYROID STIMULATING HORMONE 1.148 uIU/mL (0.358-3.74); TRIGLYCERIDES 112 mg/dL (30-150)
[2021-11-03 14:45] LABS: PROSTATE SPECIFIC ANTIGEN SCR 11.1 ng/mL (0.00-4.00)
== END 2021-11-03 23:59 | disposition home or self-care (01) ==
LOC: LAB 12:12
PROVIDERS: ATTEND Internal Medicine
DX: E78.2 Mixed hyperlipidemia (principal); R73.09 Other abnormal glucose; R97.20 Elevated prostate specific antigen [PSA]
CPT/HCPCS: 36415; 80053-TC; 80061-TC; 84153-TC; 84154-TC; 84443-TC; 85025-TC

== ENCOUNTER → 2021-12-26 | Outpatient (CLI) | payer OTHER ==
[2021-12-26 15:44] LABS: PROSTATE SPECIFIC ANTIGEN SCR 11.68 ng/mL (0.00-4.00)
== END | disposition home or self-care (01) ==
LOC: LAB 13:53
PROVIDERS: ATTEND Internal Medicine
DX: N42.82 Prostatosis syndrome (principal); R97.20 Elevated prostate specific antigen [PSA]; E78.2 Mixed hyperlipidemia
CPT/HCPCS: 36415; 80061-TC; 84153-TC

== ENCOUNTER 2022-02-20 12:05 | Outpatient (CLI) | payer OTHER ==
[2022-02-20 13:36] LABS: ALBUMIN 3.6 g/dL (3.4-5.0); BILIRUBIN,TOTAL 0.8 mg/dL (0.2-1.0); CALCIUM, SERUM 9.2 mg/dL (8.5-10.1); CREATININE 0.9 mg/dL (0.6-1.3); TOTAL PROTEIN, SERUM 7.4 g/dL (6.4-8.2)
[2022-02-20 13:49] LABS: PROSTATE SPECIFIC ANTIGEN SCR 12.75 ng/mL (0.00-4.00)
== END 2022-02-22 23:59 | disposition home or self-care (01) ==
LOC: LAB 12:05
PROVIDERS: ATTEND Internal Medicine
DX: N40.0 Benign prostatic hyperplasia without lower urinary tract symptoms (principal); R73.9 Hyperglycemia, unspecified; E78.5 Hyperlipidemia, unspecified
CPT/HCPCS: 36415; 80053-TC; 80061-TC; 84153-TC; 84154-TC; 84402; 84403

== ENCOUNTER 2022-04-23 13:24 | Outpatient (CLI) | payer OTHER ==
[2022-04-23 14:41] LABS: PROSTATE SPECIFIC ANTIGEN SCR 13.24 ng/mL (0.00-4.00)
== END 2022-04-23 23:59 | disposition home or self-care (01) ==
LOC: LAB 13:24
PROVIDERS: ATTEND Internal Medicine
DX: R97.20 Elevated prostate specific antigen [PSA] (principal); N42.82 Prostatosis syndrome; N40.0 Benign prostatic hyperplasia without lower urinary tract symptoms
CPT/HCPCS: 36415; 84153-TC; 84154-TC

== ENCOUNTER 2025-06-02 10:09 | Emergency (ER) | payer MEDICARE, OTHER ==
[~2025-06-02] VITALS: Ht 182.9 cm; Wt 83.5 kg
[2025-06-02 10:45] VITALS: BP 138/82; TEMP 97.8; O2SAT 99
== END 2025-06-02 11:50 | disposition home or self-care (01) ==
LOC: ER 10:37
DX: S93.402A Sprain of unspecified ligament of left ankle, initial encounter (principal); E78.5 Hyperlipidemia, unspecified; Z85.828 Personal history of other malignant neoplasm of skin; X58.XXXA Exposure to other specified factors, initial encounter; Y93.89 Activity, other specified; Y92.89 Other specified places as the place of occurrence of the external cause; Y99.9 Unspecified external cause status
CPT/HCPCS: 73610-TC; 73630-TC